=== PATIENT | female | born 2000 | race American Indian/Alaskan Native ===

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

== ENCOUNTER 2019-06-08 20:08 | Emergency (ER) | payer MEDICAID | END 2019-06-08 23:10 | disposition left against medical advice (07) | LOC: ED 20:08 | DX: R07.9 Chest pain, unspecified (principal); Z53.21 Procedure and treatment not carried out due to patient leaving prior to being seen by health care provider ==

== ENCOUNTER 2020-04-28 16:51 | Emergency (ER) | payer SELFPAY ==
[2020-04-28 17:22] VITALS: BP 140/81
--- NOTE | 2020-04-28 18:17 | Emergency Department Report ---
ED General Adult HPI - General Chief complaint: Fall Stated complaint: RT KNEE AND RT ANKLE/FALL Time Seen by Provider: 04/28/20 18:12 Source: patient Mode of arrival: Ambulatory Limitations: No Limitations - History of Present Illness Initial comments: 19-year-old -[place]i female patient presents with complaints of right hip pain x today. Patient states she tripped on the edge of a curb and fell onto concrete hitting her right hip. She denies any bruising, numbness/tingling/weakness in her leg, back pain, decreased movement of the hip, or swelling. Patient rates her current pain as a 7/10 in severity and states it did not improve with Tylenol. She states the pain does radiate all the way down her leg into her foot. No loss of bladder/bowel control or saddle paresthesias per patient. - Related Data Previous Rx's Medication Instructions Recorded Last Taken Type Diphenoxylate HCl/Atropine 2 each PO QID PRN #20 tablet 01/14/17 Unknown Rx [Lomotil 2.5-0.025 mg Tablet] Famotidine [Pepcid] 20 mg PO BID #20 tablet 01/14/17 Unknown Rx Ondansetron [Zofran ODT TAB] 8 mg PO Q8HR #20 tab.rapdis 01/14/17 Unknown Rx Promethazine [Phenergan] 25 mg [place] Q6HR PRN #5 supp.rect 01/14/17 Unknown Rx traMADoL [Ultram] 50 mg PO Q6HR PRN #14 tablet 01/14/17 Unknown Rx Ibuprofen [Motrin] 600 mg PO Q8H PRN #30 tablet 12/05/17 Unknown Rx Naproxen 500 mg PO BID PRN 7 Days #14 tablet 04/28/20 Unknown Rx methOCARBAMOL [Robaxin TAB] 1,500 mg PO BID PRN #20 tab 04/28/20 Unknown Rx Allergies Allergy/AdvReac Type Severity Reaction Status Date / Time No Known Allergies Allergy Verified 04/28/20 17:19 ED Review of Systems ROS: Stated complaint: RT KNEE AND RT ANKLE/FALL Other details as noted in HPI Constitutional: denies: chills, fever, malaise Respiratory: denies: shortness of breath Cardiovascular: denies: chest pain Gastrointestinal: denies: hematochezia Genitourinary: denies: hematuria Musculoskeletal: arthralgia. denies: back pain, joint swelling Skin: denies: rash, lesions, change in color Neurological: denies: weakness, numbness, paresthesias, abnormal gait ED Past Medical Hx - Past Medical History Hx Asthma: Yes Additional medical history: Gastroparesis - Surgical History Additional Surgical History: Aortic valve repair, foot surgery 2 - Social History Smoking Status: Never Smoker - Medications Home Medications: Home Medications Medication Instructions Recorded Confirmed Last Taken Type Diphenoxylate HCl/Atropine 2 each PO QID PRN #20 tablet 01/14/17 Unknown Rx [Lomotil 2.5-0.025 mg Tablet] Famotidine [Pepcid] 20 mg PO BID #20 tablet 01/14/17 Unknown Rx Ondansetron [Zofran ODT TAB] 8 mg PO Q8HR #20 tab.rapdis 01/14/17 Unknown Rx Promethazine [Phenergan] 25 mg [place] Q6HR PRN #5 supp.rect 01/14/17 Unknown Rx traMADoL [Ultram] 50 mg PO Q6HR PRN #14 tablet 01/14/17 Unknown Rx Ibuprofen [Motrin] 600 mg PO Q8H PRN #30 tablet 12/05/17 Unknown Rx Naproxen 500 mg PO BID PRN 7 Days #14 tablet 04/28/20 Unknown Rx methOCARBAMOL [Robaxin TAB] 1,500 mg PO BID PRN #20 tab 04/28/20 Unknown Rx ED Physical Exam - General Limitations: No Limitations General appearance: alert, in no apparent distress, obese - Head Head exam: Present: atraumatic, normocephalic - Neck Neck exam: Present: normal inspection, full ROM - Respiratory Respiratory exam: Absent: respiratory distress - Cardiovascular Cardiovascular Exam: Present: regular rate - GI/Abdominal GI/Abdominal exam: Present: soft. Absent: tenderness - Extremities Exam Extremities exam: Present: other (Tenderness to light palpation noted of the right lateral; no groin tenderness is noted; patient has full range of motion of the right hip) - Back Exam Back exam: Present: full ROM. Absent: vertebral tenderness - Expanded Back Exam Expanded Back exam: Absent: saddle anesthesia - Neurological Exam Neurological exam: Present: alert, oriented X3 - Expanded Neurological Exam Expanded Sensory exam: Lower Extremity Light Touch: Normal Motor strength exam: RUE: 5, LUE: 5, RLE: 5, LLE: 5 - Psychiatric Psychiatric exam: Present: normal affect, normal mood - Skin Skin exam: Present: warm, dry, intact, normal color. Absent: rash ED Course Vital Signs 04/28/20 17:21 Temperature 98.5 F Pulse Rate 86 Respiratory 16 Rate Blood Pressure 140/81 O2 Sat by Pulse 99 Oximetry ED Medical Decision Making - Medical Decision Making 19-year-old -[place] female patient presents with complaints of right hip pain x today. Patient states she tripped on the edge of a curb and fell onto concrete hitting her right hip. She denies any bruising, numbness/tingling/weakness in her leg, back pain, decreased movement of the hip, or swelling. Patient rates her current pain as a 7/10 in severity and states it did not improve with Tylenol. She states the pain does radiate all the way down her leg into her foot. No loss of bladder/bowel control or saddle paresthesias per patient. Patient has full range of motion of the right hip on exam. She denies any red flag symptoms. Suspect muscle contusion to right hip. Will treat with NSAIDs and muscle relaxers. Also recommend icing. Her vitals are normal and she is well-appearing and stable for discharge home. Patient educated on signs and symptoms that should prompt immediate return to the emergency department in detail and she verbalizes understanding. Primary care follow-up recommended in 3 to 5 days peer Critical care attestation.: If time is entered above; I have spent that time in minutes in the direct care of this critically ill patient, excluding procedure time. ED Disposition Clinical Impression: Contusion of right hip Qualifiers: Encounter type: initial encounter Qualified Code(s): S70.01XA - Contusion of right hip, initial encounter Disposition: DC-01 TO HOME OR SELFCARE Is pt being admited?: No Condition: Stable Instructions: Contusion, Muscle Strain, Uboj-[id number], Sciatica Rehab-SportsMed Prescriptions: Naproxen 500 mg PO BID PRN 7 Days #14 tablet PRN Reason: pain methOCARBAMOL [Robaxin TAB] 1,500 mg PO BID PRN #20 tab PRN Reason: muscle spasm/tightness Referrals: [facility] [Provider Group] - 3-5 Days Forms: Work/School Release Form(ED)
== END 2020-04-28 19:00 | disposition home or self-care (01) ==
LOC: ED 16:51
DX: S70.01XA Contusion of right hip, initial encounter (principal); J45.909 Unspecified asthma, uncomplicated; Z79.899 Other long term (current) drug therapy; Z98.890 Other specified postprocedural states; W17.89XA Other fall from one level to another, initial encounter; Y93.89 Activity, other specified; Y92.89 Other specified places as the place of occurrence of the external cause; Y99.8 Other external cause status
CPT/HCPCS: 99281

== ENCOUNTER 2021-07-01 04:33 | Emergency (ER) | payer SELFPAY ==
[2021-07-01 04:59] VITALS: BP 154/98
[2021-07-01] MEDS ORDERED: ONDANSETRON 4 MG ODT TAB PO ONE (05:39)
[2021-07-01] MEDS ORDERED: IBUPROFEN 600 MG TAB PO ONE (05:39)
[2021-07-01] MEDS ORDERED: CLINDAMYCIN 300 MG CAP PO ONE (05:39)
[2021-07-01] MEDS ORDERED: HYDROcodone/ACETAMINOPHEN 7.5-325MG TAB PO ONE (05:39)
--- NOTE | 2021-07-01 05:39 | Emergency Department Report ---
ED General Adult HPI - General Chief complaint: Dental/Oral Stated complaint: FACIAL PAIN Source: patient Mode of arrival: Ambulatory Limitations: No Limitations - History of Present Illness Initial comments: Patient is a 20-year-old -[place] female with a history of asthma, gastroparesis and morbid obesity who presents to the ED with complaint of acute onset persistent painful swollen right maxillary gingiva with premolar and molar toothache for the last 1 week. Patient states that the pain has worsened in the last 2 days and that tonight she was unable to sleep. Patient states that she has been taking [id number] medications for pain with no relief. Patient denies dizziness, syncope, chest pain, shortness of breath, sore throat, nausea and vomiting, fever, chills, cough, abdominal pain or palpitations MD Complaint: Right maxillary premolar molar toothache with swollen gums. -: Sudden, week(s) (1) Location: mouth Radiation: non-radiation Severity scale (0 -10): 8 Quality: aching, sharp Consistency: constant Improves with: none Worsens with: eating, other (Speech) Associated Symptoms: denies other symptoms, headaches. denies: confusion, chest pain, cough, diaphoresis, fever/chills, loss of appetite, malaise, nausea/vomiting, rash, seizure, shortness of breath, syncope, other Treatments Prior to Arrival: none - Related Data Previous Rx's Medication Instructions Recorded Last Taken Type Diphenoxylate HCl/Atropine 2 each PO QID PRN #20 tablet 01/14/17 Unknown Rx [Lomotil 2.5-0.025 mg Tablet] Famotidine [Pepcid] 20 mg PO BID #20 tablet 01/14/17 Unknown Rx Ondansetron [Zofran ODT TAB] 8 mg PO Q8HR #20 tab.rapdis 01/14/17 Unknown Rx Promethazine [Phenergan] 25 mg [place] Q6HR PRN #5 supp.rect 01/14/17 Unknown Rx Ibuprofen [Motrin] 600 mg PO Q8H PRN #30 tablet 12/05/17 Unknown Rx Naproxen 500 mg PO BID PRN 7 Days #14 tablet 04/28/20 Unknown Rx methOCARBAMOL [Robaxin TAB] 1,500 mg PO BID PRN #20 tab 04/28/20 Unknown Rx Clindamycin [Clindamycin CAP] 300 mg PO Q8H #30 cap 07/01/21 Unknown Rx Ketorolac [Toradol] 10 mg PO Q8H PRN #20 tab 07/01/21 Unknown Rx traMADoL [Ultram 50 MG tab] 50 mg PO Q6HR PRN #14 tablet 07/01/21 Unknown Rx Allergies Allergy/AdvReac Type Severity Reaction Status Date / Time No Known Allergies Allergy Verified 04/28/20 17:19 ED Review of Systems ROS: Stated complaint: FACIAL PAIN Other details as noted in HPI Constitutional: denies: chills, fever Eyes: denies: eye pain, eye discharge, vision change ENT: dental pain (Right maxillary gingival pain and swelling with premolar and molar toothache). denies: ear pain, throat pain Respiratory: denies: cough, shortness of breath, wheezing Cardiovascular: denies: chest pain, palpitations Endocrine: no symptoms reported Gastrointestinal: denies: abdominal pain, nausea, vomiting, diarrhea Genitourinary: denies: urgency, dysuria, discharge Musculoskeletal: denies: back pain, joint swelling, arthralgia Skin: denies: rash, lesions Neurological: denies: headache, weakness, paresthesias Psychiatric: denies: anxiety, depression Hematological/Lymphatic: denies: easy bleeding, easy bruising ED Past Medical Hx - Past Medical History Previous Medical History?: Yes Hx Asthma: Yes Additional medical history: Gastroparesis. Morbid Obesity - Surgical History Past Surgical History?: Yes Additional Surgical History: Aortic valve repair, foot surgery 2 - Social History Smoking Status: Never Smoker Substance Use Type: None - Medications Home Medications: Home Medications Medication Instructions Recorded Confirmed Last Taken Type Diphenoxylate HCl/Atropine 2 each PO QID PRN #20 tablet 01/14/17 Unknown Rx [Lomotil 2.5-0.025 mg Tablet] Famotidine [Pepcid] 20 mg PO BID #20 tablet 01/14/17 Unknown Rx Ondansetron [Zofran ODT TAB] 8 mg PO Q8HR #20 tab.rapdis 01/14/17 Unknown Rx Promethazine [Phenergan] 25 mg [place] Q6HR PRN #5 supp.rect 01/14/17 Unknown Rx Ibuprofen [Motrin] 600 mg PO Q8H PRN #30 tablet 12/05/17 Unknown Rx Naproxen 500 mg PO BID PRN 7 Days #14 tablet 04/28/20 Unknown Rx methOCARBAMOL [Robaxin TAB] 1,500 mg PO BID PRN #20 tab 04/28/20 Unknown Rx Clindamycin [Clindamycin CAP] 300 mg PO Q8H #30 cap 07/01/21 Unknown Rx Ketorolac [Toradol] 10 mg PO Q8H PRN #20 tab 07/01/21 Unknown Rx traMADoL [Ultram 50 MG tab] 50 mg PO Q6HR PRN #14 tablet 07/01/21 Unknown Rx ED Physical Exam - General Limitations: No Limitations General appearance: alert, in no apparent distress - Head Head exam: Present: atraumatic, normocephalic, normal inspection - Eye Eye exam: Present: normal appearance, PERRL, EOMI Pupils: Present: normal accommodation - ENT ENT exam: Present: mucous membranes moist, TM's normal bilaterally, normal external ear exam, other (Swollen, tender right maxillary gingiva with right maxillary premolar and molar teeth tenderness) - Neck Neck exam: Present: normal inspection, full ROM. Absent: tenderness, lymphadenopathy - Respiratory Respiratory exam: Present: normal lung sounds bilaterally. Absent: respiratory distress, wheezes, rhonchi, stridor, chest wall tenderness, accessory muscle use, decreased breath sounds, other - Cardiovascular Cardiovascular Exam: Present: regular rate, normal rhythm, normal heart sounds. Absent: systolic murmur, diastolic murmur, rubs, gallop - GI/Abdominal GI/Abdominal exam: Present: soft, normal bowel sounds. Absent: tenderness, guarding, rebound, hyperactive bowel sounds, hypoactive bowel sounds, organomegaly - Extremities Exam Extremities exam: Present: normal inspection, full ROM, normal capillary refill - Back Exam Back exam: Present: normal inspection, full ROM. Absent: tenderness, CVA tenderness (R), CVA tenderness (L), muscle spasm, paraspinal tenderness, vertebral tenderness - Neurological Exam Neurological exam: Present: alert, oriented X3, CN II-XII intact, normal gait, reflexes normal - Psychiatric Psychiatric exam: Present: normal affect, normal mood - Skin Skin exam: Present: warm, dry, intact, normal color. Absent: rash ED Course Vital Signs 07/01/21 04:51 Temperature 99.9 F H Pulse Rate 99 H Respiratory 18 Rate Blood Pressure 154/98 O2 Sat by Pulse 97 Oximetry ED Medical Decision Making - Medical Decision Making This is a 20-year-old -[place] female with a history of asthma, gastroparesis and morbid obesity who presents to the ED with complaint of acute onset persistent painful swollen right maxillary gingiva with premolar and molar toothache for the last 1 week. Patient states that the pain has worsened in the last 2 days and that tonight she was unable to sleep. Patient states that she has been taking [id number] medications for pain with no relief. In the ED, patient is alert and oriented x3 and is not in distress. Patient however appears to be in significant pain. Patient was treated for pain and also given initial oral antibiotics in the ED. On reevaluation, patient's pain is well controlled medication. Patient was discharge home on pain medications and antibiotics and advised to follow-up with her dentist in 7 to 10 days for reevaluation. Patient was advised to return to the ED immediately if symptoms get worse. - Differential Diagnosis Gingivitis; dental abscess; dental caries; Critical care attestation.: If time is entered above; I have spent that time in minutes in the direct care of this critically ill patient, excluding procedure time. ED Disposition Clinical Impression: Dental abscess, Acute gingivitis, Dental caries Disposition: 01 HOME / SELF CARE / HOMELESS Is pt being admited?: No Does the pt Need Aspirin: No Condition: Stable Instructions: Dental Abscess, [id number], Trench Mouth Additional Instructions: Take medication with food, drink plenty of fluids and follow-up with your dentist or primary care physician in 7 to 10 days for reevaluation. Return to the ED immediately if symptoms get worse. Prescriptions: Clindamycin [Clindamycin CAP] 300 mg PO Q8H #30 cap Ketorolac [Toradol] 10 mg PO Q8H PRN #20 tab PRN Reason: Pain traMADoL [Ultram 50 MG tab] 50 mg PO Q6HR PRN #14 tablet PRN Reason: Pain Referrals: [facility] [Outside] - 7-10 days Forms: Work/School Release Form(ED) Time of Disposition: 05:30 Print Language: AMHARIC
== END 2021-07-01 06:00 | disposition home or self-care (01) ==
LOC: ED 04:33
DX: K04.7 Periapical abscess without sinus (principal); K05.00 Acute gingivitis, plaque induced; K02.9 Dental caries, unspecified; J45.909 Unspecified asthma, uncomplicated
CPT/HCPCS: 99282; J3490; Q0162